=== PATIENT | female | born 2000 | race African-American/Black ===

== ENCOUNTER 2021-09-07 06:48 | Emergency (ER) | payer OTHER ==
[2021-09-07 07:10] VITALS: BP 113/53; PULSE 76; TEMP 98.5; BMI 27.4
[2021-09-07 07:41] LABS: HCG,QUALITATIVE URINE Negative
[2021-09-07] MEDS ORDERED: MAG HYDROX/AL HYDROX/SIMETH 30 ML UNIT-DOSE CUP PO ONE (07:48)
[2021-09-07] MEDS ORDERED: FAMOTIDINE 20 MG TABLET PO ONE (07:48)
[2021-09-07] MEDS ORDERED: LIDOCAINE VISCOUS 2% ORAL/TOP 15 ML UNIT-DOSE CUP MM ONE (07:49)
[2021-09-07 08:16] LABS: HEMATOCRIT 37.6 % (32.4-45.2); HEMOGLOBIN 12.8 G/dL (10.7-15.3); MCH 30.6 pg (25.7-33.7); MCHC 33.9 g/dl (32.0-36.0); MEAN CELL VOLUME 90.5 fl (80-96); MEAN PLT VOLUME 8.7 fl (7.5-11.1); RBC 4.16 10^6/uL (3.60-5.2); RDW 13.6 % (11.6-15.6); WHITE BLOOD COUNT 5.6 10^3/uL (4.0-10.8)
[2021-09-07 08:24] LABS: ALBUMIN 3.9 g/dl (3.4-5.0); BILIRUBIN,TOTAL 0.6 mg/dl (0.2-1); CALCIUM 9.5 mg/dl (8.5-10); CREATININE 0.7 mg/dl (0.55-1.3); MAGNESIUM 1.7 mg/dL (1.8-2.4); TOT PROT 6.7 g/dl (6.4-8.2)
[2021-09-07] MEDS ORDERED: MAG HYDROX/AL HYDROX/SIMETH 30 ML UNIT-DOSE CUP ONE (08:37)
[2021-09-07] MEDS ORDERED: LIDOCAINE VISCOUS 2% ORAL/TOP 15 ML UNIT-DOSE CUP ONE (08:37)
[2021-09-07] MEDS ORDERED: FAMOTIDINE 20 MG TABLET ONE (08:37)
[2021-09-07 08:48] LABS: PLATELET ESTIMATE ADEQUATE
== END 2021-09-07 09:08 | disposition home or self-care (01) ==
LOC: FER 06:48
DX: R10.12 Left upper quadrant pain (principal); R10.13 Epigastric pain
CPT/HCPCS: 36415; 71045-TC-FY; 76705-TC; 80053; 81003; 83690; 83735; 84484; 84703; 85025; 93005; 99285-25